=== PATIENT | female | born 1985 | race American Indian/Alaskan Native ===

== ENCOUNTER 2018-07-13 23:29 | Inpatient (IN) | payer MEDICAID ==
[2018-07-13] MEDS ORDERED: LACTATED RINGERS 1,000 ML ONE (23:54)
[2018-07-13] MEDS ORDERED: POLYCILLIN/NS 2 GM/100 ML 2 GM/100 ML BAG IV ONE (23:58)
[2018-07-13] MEDS ORDERED: PITOCin/NS 20 UNIT/1000ML DRIP 20,000 MILLIUNITS/1,000 ML BAG IV ONE (23:59)
[2018-07-13] MEDS ORDERED: SUBLIMAZE ONE (23:59)
[2018-07-14] MEDS ORDERED: MINERAL OIL PO PRN (00:12)
[2018-07-14] MEDS ORDERED: XYLOCAINE 2% INFILTRATI ONE (00:12)
[2018-07-14] MEDS ORDERED: POLYCILLIN/NS 2 GM/100 ML 2 GM/100 ML BAG IV ONE (00:12)
[2018-07-14] MEDS ORDERED: SUBLIMAZE IV PRN (00:12)
[2018-07-14 00:31] LABS: Hematocrit 38.1 % (30.3-42.9); Hemoglobin 13.3 gm/dl (10.1-14.3); Mean Corpuscular HGB Conc 35 % (30-34); Mean Corpuscular Hemoglobin 31 pg (28-32); Mean Corpuscular Volume 89 fl (79-97); Platelet Count 110 K/mm3 (140-440); Red Blood Count 4.31 M/mm3 (3.65-5.03)
[2018-07-14] MEDS ORDERED: LACTATED RINGERS 1,000 ML IV SCH (01:00)
[2018-07-14] MEDS ORDERED: PITOCin/NS 20 UNIT/1000ML DRIP 20 UNITS/1,000 ML BAG IV SCH ×2 (01:00→02:00)
--- NOTE | 2018-07-14 01:26 | History and Physical Report ---
History of Present Illness Date of examination: 07/14/18 Date of admission: 07/14/18 00:01 Chief complaint: contractions History of present illness: This is a 33 yo G P at weeks EDC . Past History Past Surgical History: no surgical history Family/Genetic History: none Social history: . denies: smoking, alcohol abuse, prescription drug abuse - Obstetrical History Expected Date of Delivery: 07/16/18 Actual Gestation: 39 Week(s) 5 Day(s) : 4 Para: 3 Hx # Term Pregnancies: 3 Number of Pregnancies: 0 Spontaneous Abortions: 0 Induced : 0 Number of Living Children: 3 Medications and Allergies Allergies Allergy/AdvReac Type Severity Reaction Status Date / Time shellfish derived Allergy Hives Verified 03/19/16 22:42 Home Medications Medication Instructions Recorded Confirmed Last Taken Type Nitrofurantoin Assumption/M-Cryst 100 mg PO Q12HR #14 capsule 08/16/15 03/30/16 Unknown Rx [Macrobid CAP] Vit-Fe Fumar-FA [ 1 tab PO DAILY 08/16/15 03/30/16 08/15/15 History Vitamin] Ibuprofen [Motrin 600 MG tab] 600 mg PO Q6H PRN #30 tablet 03/30/16 Unknown Rx Ferrous Sulfate 325 mg PO BID #30 tablet.dr 07/14/18 Unknown Rx Ibuprofen [Motrin] 600 mg PO Q8H PRN #30 tablet 07/14/18 Unknown Rx oxyCODONE /ACETAMINOPHEN [Percocet 1 tab PO Q6HR PRN #30 tablet 07/14/18 Unknown Rx 5/325] Active Meds: Active Medications Ephedrine Sulfate (Ephedrine Sulfate) 10 mg IV Q2M PRN PRN Reason: Hypotension Fentanyl (Sublimaze) 100 mcg IV Q2H PRN PRN Reason: Labor Pain Last Admin: 07/14/18 00:10 Dose: 100 mcg Lactated Ringer's (Lactated Ringers) 1,000 mls @ 125 mls/hr IV DIRECT KEN Last Admin: 07/14/18 00:10 Dose: 999 mls/hr Oxytocin/Sodium Chloride (Pitocin/Ns 20 Unit/1000ml Drip) 20 units in 1,000 mls @ 125 mls/hr IV DIRECT KEN Mineral Oil (Mineral Oil) 30 ml PO QHS PRN PRN Reason: Constipation Review of Systems All systems: negative Genitourinary: contractions - Vital Signs Vital signs: Vital Signs Temp Resp 97.1 F L 22 07/13/18 23:36 07/13/18 23:36 Temp Pulse Resp BP Pulse Ox 97.3 F L 84 20 129/80 07/14/18 01:18 07/14/18 01:14 07/14/18 01:18 07/14/18 01:14 - Physical Exam Breasts: Positive: normal Cardiovascular: Regular rate, Normal S1 Lungs: Positive: Clear to auscultation, Normal air movement Abdomen: Positive: normal appearance, soft, normal bowel sounds. Negative: distention, tenderness, guarding Genitourinary (Female): Positive: normal external genitalia, normal perenium Vulva: both: normal Vagina: Positive: normal moisture Uterus: Positive: normal size, normal contour Anus/Rectum: Positive: normal perianal skin, heme negative Extremities: Positive: normal Deep Tendon Reflex Grade: Normal +2 - Obstetrical FHR: category 1 Cervical Dilatation: 7 Cervical Effacement Percentage: 100 station: 0 Uterine Contraction Pattern: Regular Uterine Tone Measurement Phase: Contraction Uterine Contraction Intensity: Strong/Firm Results Result Diagrams: 07/14/18 00:10 Abnormal lab results 07/14/18 Range/Units 00:10 MCHC 35 H (30-34) % Plt Count 110 L (140-440) K/mm3 All other labs normal. Assessment and Plan A/P IUP 39+5 weeks Transitional labor IVF, labs offer epidural expect vaginal delivery
[2018-07-14] MEDS ORDERED: NORCO 5/325 PO PRN (01:34)
[2018-07-14] MEDS ORDERED: PHENERGAN PO PRN (01:34)
[2018-07-14] MEDS ORDERED: DULCOLAX PR PRN (01:34)
[2018-07-14] MEDS ORDERED: PHENERGAN PR PRN (01:34)
[2018-07-14] MEDS ORDERED: ZOFRAN IV PRN (01:34)
[2018-07-14] MEDS ORDERED: TYLENOL PO PRN (01:34)
[2018-07-14] MEDS ORDERED: LANSINOH TP PRN (01:34)
[2018-07-14] MEDS ORDERED: MILK OF MAGNESIA PO PRN (01:34)
[2018-07-14] MEDS ORDERED: TUCKS PAD TP PRN (01:34)
[2018-07-14] MEDS ORDERED: TORADOL IV PRN (01:34)
[2018-07-14] MEDS ORDERED: BENADRYL PO PRN (01:34)
--- NOTE | 2018-07-14 01:38 | Procedure Note ---
OB Delivery Note - Delivery Date of Delivery: 07/14/18 Surgeon: TAYLOR LUNA Estimated blood loss: 300cc - Vaginal Delivery presentation: vertex Delivery position: OA Intrapartum events: precipitous labor- <3hr Delivery induction: none Delivery augmentation: rupture of membranes Delivery monitor: external FHT, external uterine Route of delivery: Delivery placenta: spontaneous Delivery cord: 3 umbilical vessels Episiotomy: none Delivery laceration: none Anesthesia: none Delivery comments: Patient was noted to be c/c/ and +1 and commenced to pushing a viable female infant weighing 8 pounds and 4 oz at 0049. She delivered in SAM presentation with easilyy delivery of shoulders. Apgars 8 and 9 . The cord was clamped and cut and cord blood sent for analysis. The placenta delivered at 0112 intact with 3 vessel cord. no lacs noted. Pitocin infused. Patient tolerated procedure well. - Infant A at 1 minute: 8 at 5 minutes: 9 Infant Gender: Female
[2018-07-14] MEDS: MOTRIN PO SCH ×3 (01:50→16:43)
[2018-07-14] MEDS ORDERED: SODIUM CHLORIDE FLUSH SYRINGE 10 ML IV NR (02:00)
[2018-07-14] MEDS: PERCOCET 5/325 PO PRN ×3 (03:37→16:42)
[2018-07-14] MEDS: SENOKOT S PO SCH (09:36)
[2018-07-14] MEDS: PRENATAL VITAMIN PO SCH (09:37)
[2018-07-14 13:59] LABS: Hematocrit 33.8 % (30.3-42.9); Hemoglobin 11.7 gm/dl (10.1-14.3)
[2018-07-14] MEDS: COLACE PO SCH (22:13)
[2018-07-15] MEDS: SENOKOT S PO SCH ×2 (00:16→22:08)
[2018-07-15] MEDS: MOTRIN PO SCH ×4 (00:37→18:54)
[2018-07-15] MEDS ORDERED: BOOSTRIX IM ONE ×2 (06:00→18:15)
[2018-07-15] MEDS ORDERED: M-M-R II VACCINE SUB-Q ONE (06:00)
[2018-07-15] MEDS: PERCOCET 5/325 PO PRN (10:10)
[2018-07-15] MEDS: PRENATAL VITAMIN PO SCH (10:11)
[2018-07-15] MEDS: COLACE PO SCH ×2 (10:11→22:08)
--- NOTE | 2018-07-15 20:40 | Progress Note ---
Assessment and Plan A: PPD#1 s/p at term P: Routine care. Anticipate discharge tomorrow. Subjective - Subjective Date of service: 07/15/18 Principal diagnosis: s/p at term Interval history: Pt without complaints. Patient reports: appetite normal, voiding normally, pain well controlled, ambulating normally [place]: doing well Objective - Vital Signs Latest vital signs: Vital Signs Temp Pulse Resp BP BP Pulse Ox 07/15/18 17:11 98.6 F 70 18 113/76 07/15/18 09:09 98.5 F 79 18 131/91 07/15/18 01:00 98.5 F 83 18 112/57 07/15/18 00:42 98.0 F 96 H 18 118/77 98 Intake and Output 07/15/18 07/15/18 07/15/18 06:59 14:59 22:59 Intake Total 240 240 120 Balance 240 240 120 Intake: Oral 240 120 Intake, Free Water 240 Other: Total, Intake Amount 240 120 # Voids Void 2 1 - Exam Breasts: Present: deferred Cardiovascular: Present: Regular rate Lungs: Present: Clear to auscultation Abdomen: Present: soft Uterus: Present: fundal height below umbilicus Extremities: Present: normal
--- NOTE | 2018-07-15 20:40 | Discharge Summary ---
Providers - Providers Date of Admission: 07/14/18 00:01 Date of discharge: 07/16/18 Attending physician: TAYLOR LUNA MD Primary care physician: TAYLOR LUNA MD Hospitalization Reason for admission: active labor Delivery: Procedure details: Please see delivery note. Episiotomy: none Laceration: none Other procedures: none complications: none Discharge diagnosis: IUP at term delivered [place] baby: female Hospital course: Pt was admitted in labor and went on to have a spontaneous vaginal delivery. Her course was uncomplicated and she met discharge criteria on PPD# 2. She will follow up in the office in 4 wks. Condition at discharge: Stable Disposition: TO HOME OR SELFCARE - Discharge Diagnoses (1) Term of female Status: Acute Plan - Discharge Medications Prescriptions: HYDROcodone/APAP 5-325 [[place] 5/325] 1 each PO Q6HR PRN #20 tablet PRN Reason: Pain Ibuprofen [Motrin] 800 mg PO Q8HR PRN #30 tablet PRN Reason: Pain, Moderate (4-6) - Provider Discharge Summary Activity: routine, no sex for 6 weeks, no heavy lifting 4 weeks, no strenuous exercise Diet: routine Instructions: routine Additional instructions: [] Smoking cessation referral if applicable(refer to patient education folder for contact #) [] Refer to [facility] Booklet Call your doctor immediately for: * Fever > 100.5 * Heavy vaginal bleeding ( >1 pad per hour) * Severe persistent headache * Shortness of breath * Reddened, hot, painful area to leg or breast * Drainage or odor from incision. * Keep incision clean and dry at all times and follow doctor's instructions regarding bathing/showering - Follow up plan Follow up: TAYLOR LUNA MD [Primary Care Provider] - 08/11/18 (Please call to schedule exam. )
[2018-07-16] MEDS: MOTRIN PO SCH ×2 (00:06→06:00)
[2018-07-16 13:03] VITALS: BP 116/71
== END 2018-07-16 14:05 | disposition home or self-care (01) | DRG 775 ==
LOC: TRG 23:29 → LD 23:31 → TRG 07-14 → LD 07-14 00:01 → OB 07-14 03:03
PROVIDERS: ADMIT Obstetrics & Gynecology; ATTEND Obstetrics & Gynecology
PROC: 10E0XZZ Delivery of Products of Conception, External Approach (ICD-10-PCS; principal; 2018-07-14)
PROC: 10907ZC Drainage of Amniotic Fluid, Therapeutic from Products of Conception, Via Natural or Artificial Opening (ICD-10-PCS; 2018-07-14)
PROC: 3E0234Z Introduction of Serum, Toxoid and Vaccine into Muscle, Percutaneous Approach (ICD-10-PCS; 2018-07-15)
DX: O62.3 Precipitate labor (principal); Z3A.39 39 weeks gestation of pregnancy; Z37.0 Single live birth; Z91.013 Allergy to seafood; Z79.899 Other long term (current) drug therapy; Z23 Encounter for immunization
CPT/HCPCS: 36415; 85014; 85018; 85027; 86592; 86850; 86900; 86901; 90471; 90715; 99211; G0463; J0290; J2590; J3010; J7120